=== PATIENT | male | born 1975 | race Two or more races ===

== ENCOUNTER 2017-05-12 20:02 | Inpatient (IN) | payer OTHER ==
[~2017-05-12] VITALS: Ht 177.8 cm; Wt 82.9 kg
[2017-05-12 20:43] LABS: Basophils # (auto) 0.1 uL; Basophils % (auto) 1.1 % (0.0-2.0); Eosinophils # (auto) 0.5 uL; Eosinophils % (auto) 5.9 % (0.0-7.0); Hematocrit 45.4 % (41.0-53.0); Hemoglobin 15.5 g/dL (13.5-17.5); Lymphocytes # (auto) 2.7 uL; Lymphocytes % (auto) 34.5 % (10.0-50.0); Mean Corpuscular Hemoglobin 33.9 pg (28.0-32.0); Mean Corpuscular Hgb Conc. 34.1 g/dL (32.0-36.0); Mean Corpuscular Volume 99.4 fL (80.0-100.0); Monocytes # (auto) 0.6 uL; Monocytes % (auto) 7.5 % (0.0-12.0); Nucleated Red Blood Cells % 0.1 %; Platelet Count (auto) 311 10^3/uL (140-450); Red Blood Cells 4.56 10^6/uL (4.5-5.90); Red Cell Distribution Width 12.2 % (11.8-14.3); White Blood Cell 7.9 10^3/uL (4.4-10.8)
[2017-05-12 21:08] LABS: Albumin 3.7 g/dL (3.4-5.0); BUN/Creatinine Ratio 20.9; Bilirubin, Total 0.3 mg/dL (0.2-1.0); Calcium 8.8 mg/dL (8.5-10.1); Potassium 4.2 mmol/L (3.5-5.1); Total Protein 8.3 g/dL (6.4-8.2)
[2017-05-12 21:25] LABS: Urine Bacteria FEW /hpf (None Seen); Urine Blood 3+ /uL (Negative); Urine Mucus FEW (None Seen); Urine Specific Gravity 1.013 (1.001-1.035); Urine WBC 69 /hpf (0 - 3)
[2017-05-12] MEDS ORDERED: HYDROmorphone HCL 2 MG/ML VL IV ONE (22:15)
[2017-05-12] MEDS ORDERED: ONDANSETRON HCL 4 MG/2 ML VIAL IV ONE (22:15)
[2017-05-13] MEDS ORDERED: HYDROmorphone HCL 2 MG/ML VL IV ONE (02:15)
[2017-05-13] MEDS ORDERED: ONDANSETRON HCL 4 MG/2 ML VIAL IV ONE (02:15)
[2017-05-13] MEDS ORDERED: cefTRIAXone 1GM/50ML D5W 50 ML IV ONE ×2 (02:15→13:30)
[2017-05-13] MEDS ORDERED: SODIUM CHLORIDE 0.9% 500 ML IV ONE (02:45)
[2017-05-13] MEDS ORDERED: TEMAZEPAM 15 MG CAP PO PRN (02:45)
[2017-05-13] MEDS ORDERED: ACETAMINOPHEN 325 MG TAB PO PRN (02:45)
[2017-05-13] MEDS ORDERED: ONDANSETRON HCL 4 MG/2 ML VIAL IV PRN (02:45)
[2017-05-13] MEDS ORDERED: HYDROcodone-ACET 5/325MG TAB PO PRN (02:45)
[2017-05-13] MEDS ORDERED: MORPHINE SULFATE 10 MG/ML INJ 1ML SDV IV PRN (03:00)
[2017-05-13] MEDS: SODIUM CHLORIDE 0.9% 1,000 ML IV SCH ×3 (04:18→18:00)
[2017-05-13] MEDS ORDERED: cloNIDine HCL 0.1 MG TAB PO ONE (08:15)
[2017-05-13 09:30] VITALS: BP 132/88
[2017-05-13 09:39] VITALS: BP 132/88
[2017-05-13] MEDS: FAMOTIDINE 20 MG TAB PO SCH ×2 (09:50→22:25)
[2017-05-13 12:19] LABS: INR 0.98 (0.9-1.15); Prothrombin Time 10.7 sec (9.37-12.3)
[2017-05-13 12:35] VITALS: BP 124/80
[2017-05-13] MEDS: MORPHINE SULFATE 10 MG/ML INJ 1ML SDV IV PRN ×3 (13:55→22:26)
[2017-05-13 16:19] VITALS: BP 110/72
[2017-05-13 22:00] VITALS: BP 120/70
[2017-05-13] MEDS ORDERED: cefTRIAXone 1GM/50ML D5W 50 ML IV SCH (22:00)
[2017-05-14] MEDS: MORPHINE SULFATE 10 MG/ML INJ 1ML SDV IV PRN ×5 (02:27→20:05)
[2017-05-14 06:00] VITALS: BP 126/89
[2017-05-14] MEDS ORDERED: FUROSEMIDE 40 MG/4 ML VIAL ONE (08:21)
[2017-05-14] MEDS: cefTRIAXone 1GM/50ML D5W 50 ML IV SCH (09:00)
[2017-05-14] MEDS: FAMOTIDINE 20 MG TAB PO SCH ×2 (09:03→21:25)
[2017-05-14 12:02] VITALS: BP 142/89
[2017-05-14] MEDS ORDERED: PROPOFOL 10 MG/ML 20 ML IV ONE (14:12)
[2017-05-14] MEDS ORDERED: fentaNYL CITRATE 100 MCG/2 ML VL ONE (14:12)
[2017-05-14] MEDS ORDERED: MIDAZOLAM HCL 1MG/1ML-2 ML VIAL ONE (14:12)
[2017-05-14] MEDS ORDERED: hydrALAZINE HCL 20 MG/ML VL IV PRN (15:00)
[2017-05-14] MEDS ORDERED: ONDANSETRON HCL 4 MG/2 ML VIAL IV ONE (15:00)
[2017-05-14] MEDS ORDERED: ePHEDrine SULFATE 50 MG/ML AMP IV PRN (15:00)
[2017-05-14] MEDS ORDERED: fentaNYL CITRATE 100 MCG/2 ML VL IV ONE (15:00)
[2017-05-14] MEDS: SODIUM CHLORIDE 0.9% 1,000 ML IV SCH (15:50)
[2017-05-14 16:07] LABS: Eosinophils # (auto) 0.5 uL; Monocytes % (auto) 5.4 % (0.0-12.0)
[2017-05-14 16:08] LABS: Basophils # (auto) 0 uL; Basophils % (auto) 0.5 % (0.0-2.0); Eosinophils % (auto) 6.3 % (0.0-7.0); Hematocrit 49.5 % (41.0-53.0); Hemoglobin 16.7 g/dL (13.5-17.5); Lymphocytes # (auto) 1.9 uL; Lymphocytes % (auto) 23.8 % (10.0-50.0); Mean Corpuscular Hemoglobin 33.8 pg (28.0-32.0); Mean Corpuscular Hgb Conc. 33.7 g/dL (32.0-36.0); Mean Corpuscular Volume 100.5 fL (80.0-100.0); Monocytes # (auto) 0.4 uL; Neutrophils # (auto) 5.2 uL; Nucleated Red Blood Cells % 0.1 %; Platelet Count (auto) 296 10^3/uL (140-450); Red Blood Cells 4.92 10^6/uL (4.5-5.90); Red Cell Distribution Width 12.5 % (11.8-14.3); White Blood Cell 8.1 10^3/uL (4.4-10.8)
[2017-05-14 16:33] LABS: Albumin 3.3 g/dL (3.4-5.0); BUN/Creatinine Ratio 17.9; Calcium 8.7 mg/dL (8.5-10.1); Potassium 4.1 mmol/L (3.5-5.1)
[2017-05-14 16:36] LABS: Bilirubin, Total 0.4 mg/dL (0.2-1.0); Total Protein 7.5 g/dL (6.4-8.2)
[2017-05-14 16:44] VITALS: BP 149/109
[2017-05-14 22:17] VITALS: BP 129/73
[2017-05-15] MEDS: MORPHINE SULFATE 10 MG/ML INJ 1ML SDV IV PRN ×5 (00:27→21:52)
[2017-05-15] MEDS: SODIUM CHLORIDE 0.9% 1,000 ML IV SCH ×2 (04:31→17:23)
[2017-05-15 05:27] VITALS: BP 133/73
[2017-05-15 08:00] VITALS: BP 119/83
[2017-05-15] MEDS: cefTRIAXone 1GM/50ML D5W 50 ML IV SCH (08:08)
[2017-05-15] MEDS ORDERED: PROPOFOL 10 MG/ML 20 ML IV ONE ×2 (08:11→10:03)
[2017-05-15] MEDS ORDERED: ONDANSETRON HCL 4 MG/2 ML VIAL ONE (08:11)
[2017-05-15] MEDS ORDERED: MIDAZOLAM HCL 1MG/1ML-2 ML VIAL ONE (08:11)
[2017-05-15] MEDS ORDERED: SODIUM CHLORIDE LOCK 10 ML ONE (08:11)
[2017-05-15] MEDS ORDERED: fentaNYL CITRATE 100 MCG/2 ML VL ONE (08:11)
[2017-05-15 08:51] VITALS: BP 119/83
[2017-05-15] MEDS: FAMOTIDINE 20 MG TAB PO SCH ×2 (10:00→21:51)
[2017-05-15] MEDS ORDERED: METOCLOPRAMIDE HCL 5MG/ml INJ 2ml VIAL IV ONE (10:45)
[2017-05-15] MEDS ORDERED: HYDROmorphone HCL 2 MG/ML VL IV PRN (10:45)
[2017-05-15] MEDS ORDERED: cefTRIAXone SOD 1,000 MG VL IV ONE (12:15)
[2017-05-15 13:47] VITALS: BP 144/88
[2017-05-15 16:57] VITALS: BP 128/95
[2017-05-15 22:04] VITALS: BP 135/81
[2017-05-16] MEDS: MORPHINE SULFATE 10 MG/ML INJ 1ML SDV IV PRN ×3 (01:53→11:08)
[2017-05-16 04:52] VITALS: BP 132/88
[2017-05-16] MEDS: SODIUM CHLORIDE 0.9% 1,000 ML IV SCH ×2 (06:04→17:23)
[2017-05-16 09:00] VITALS: BP 135/69
[2017-05-16] MEDS: cefTRIAXone 1GM/50ML D5W 50 ML IV SCH (09:19)
[2017-05-16] MEDS: FAMOTIDINE 20 MG TAB PO SCH ×2 (09:19→20:31)
[2017-05-16 13:00] VITALS: BP 134/71
[2017-05-16] MEDS: HYDROcodone-ACET 10/325MG TAB PO PRN ×2 (15:45→20:32)
[2017-05-16 16:57] VITALS: BP 141/82
[2017-05-16 22:00] VITALS: BP 141/89
[2017-05-17] MEDS: SODIUM CHLORIDE 0.9% 1,000 ML IV SCH ×2 (03:56→17:31)
[2017-05-17 05:00] VITALS: BP 138/87
[2017-05-17 08:00] VITALS: BP 144/81
[2017-05-17] MEDS: HYDROcodone-ACET 10/325MG TAB PO PRN ×3 (08:33→20:46)
[2017-05-17] MEDS: cefTRIAXone 1GM/50ML D5W 50 ML IV SCH (08:33)
[2017-05-17 09:00] VITALS: BP 144/81
[2017-05-17] MEDS: FAMOTIDINE 20 MG TAB PO SCH ×2 (10:10→21:49)
[2017-05-17 13:00] VITALS: BP 126/76
[2017-05-17 15:26] LABS: Urine Bacteria NONE SEEN /hpf (None Seen); Urine Blood 1+ /uL (Negative); Urine Specific Gravity 1.008 (1.001-1.035); Urine WBC 3 /hpf (0 - 3)
[2017-05-17 16:58] VITALS: BP 129/70
[2017-05-17 21:59] VITALS: BP 133/79
[2017-05-18 04:48] VITALS: BP 142/83
[2017-05-18] MEDS: HYDROcodone-ACET 10/325MG TAB PO PRN ×2 (05:36→09:38)
[2017-05-18] MEDS: SODIUM CHLORIDE 0.9% 1,000 ML IV SCH (07:18)
[2017-05-18 08:00] VITALS: BP_SYST 126; BP_SYST 148; BP_DIAS 76; BP_DIAS 90
[2017-05-18] MEDS: cefTRIAXone 1GM/50ML D5W 50 ML IV SCH (08:37)
[2017-05-18 09:00] VITALS: BP 148/90
[2017-05-18 09:07] VITALS: BP 148/90
[2017-05-18 09:28] VITALS: BP 148/90
[2017-05-18] MEDS: FAMOTIDINE 20 MG TAB PO SCH (09:38)
[2017-05-18 13:00] VITALS: BP 142/81
== END 2017-05-18 15:14 | DRG 690 ==
LOC: ER 20:12 → OVERFLOW 20:13 → EEVIPCON 20:13 → OVERFLOW 05-13 08:34 → WEST WING 05-13 08:45
PROVIDERS: ADMIT Nurse Practitioner; ATTEND Internal Medicine
PROC: 0TJB8ZZ Inspection of Bladder, Via Natural or Artificial Opening Endoscopic (ICD-10-PCS; principal; 2017-05-14 14:14)
PROC: 0T778DZ Dilation of Left Ureter with Intraluminal Device, Via Natural or Artificial Opening Endoscopic (ICD-10-PCS; 2017-05-15)
PROC: 0TF78ZZ Fragmentation in Left Ureter, Via Natural or Artificial Opening Endoscopic (ICD-10-PCS; 2017-05-15)
PROC: BT1F1ZZ Fluoroscopy of Left Kidney, Ureter and Bladder using Low Osmolar Contrast (ICD-10-PCS; 2017-05-15)
PROC: 0TP98DZ Removal of Intraluminal Device from Ureter, Via Natural or Artificial Opening Endoscopic (ICD-10-PCS; 2017-05-15 09:25)
DX: N13.6 Pyonephrosis (principal); F17.210 Nicotine dependence, cigarettes, uncomplicated; G47.00 Insomnia, unspecified; N18.9 Chronic kidney disease, unspecified; N26.1 Atrophy of kidney (terminal); Z96.0 Presence of urogenital implants; Z88.8 Allergy status to other drugs, medicaments and biological substances; Z90.89 Acquired absence of other organs
CPT/HCPCS: 36415; 74000; 74176; 76000; 78707; 80053; 81001; 85025; 85610; 85730; 87081; 87086; 96365; 96366; 96375; 96376; G0378; J0696; J2250; J2405; J2704

== ENCOUNTER 2017-06-11 23:01 | Emergency (ER) | payer OTHER ==
[~2017-06-11] VITALS: Ht 177.8 cm; Wt 81.6 kg
[2017-06-12 00:08] LABS: Basophils # (auto) 0.1 uL; Eosinophils # (auto) 0.4 uL; Eosinophils % (auto) 4.3 % (0.0-7.0); Hematocrit 49.1 % (41.0-53.0); Hemoglobin 16.6 g/dL (13.5-17.5); Lymphocytes # (auto) 2.3 uL; Mean Corpuscular Hemoglobin 33.4 pg (28.0-32.0); Mean Corpuscular Hgb Conc. 33.8 g/dL (32.0-36.0); Mean Corpuscular Volume 98.9 fL (80.0-100.0); Mean Platelet Volume 7.7 fL (6.9-10.8); Monocytes # (auto) 0.5 uL; Monocytes % (auto) 5.6 % (0.0-12.0); Neutrophils # (auto) 5.5 uL; Neutrophils % (auto) 63.1 % (37.0-80.0); Nucleated Red Blood Cells % 0.1 %; Platelet Count (auto) 303 10^3/uL (140-450); Red Cell Distribution Width 12.6 % (11.8-14.3); White Blood Cell 8.7 10^3/uL (4.4-10.8)
[2017-06-12 00:15] LABS: Albumin 3.8 g/dL (3.4-5.0); BUN/Creatinine Ratio 26.1; Calcium 9.5 mg/dL (8.5-10.1)
[2017-06-12 00:18] LABS: Bilirubin, Total 0.5 mg/dL (0.2-1.0); Total Protein 8.6 g/dL (6.4-8.2)
[2017-06-12 01:40] LABS: Urine Bilirubin Negative (Negative); Urine Blood 3+ /uL (Negative); Urine Ca Oxalate Crystal MOD (None Seen); Urine Color Yellow (Yellow); Urine Glucose Normal (Normal); Urine Ketone Negative (Negative); Urine Mucus FEW (None Seen); Urine Nitrite Negative (Negative); Urine RBC 86 /hpf (0 - 3); Urine Squamous Epithelial Cell FEW /hpf (<5); Urine Urobilinogen Normal (Negative); Urine pH 6.5 (5.0-8.0)
[2017-06-12] MEDS ORDERED: IBUPROFEN 400 MG TAB PO ONE (02:45)
[2017-06-12] MEDS ORDERED: SODIUM CHLORIDE 0.9% 2,000 ML IV ONE (02:45)
[2017-06-12] MEDS ORDERED: CEFTRIAXONE SODIUM 2 GM in D5W 5% 50 ML IV ONE (02:45)
[2017-06-12] MEDS ORDERED: NALBUPHINE HCL 10 MG/1ml INJECTION IV ONE (02:45)
[2017-06-12] MEDS ORDERED: cefTRIAXone SOD 1,000 MG VL ONE (02:52)
[2017-06-12 04:32] VITALS: BP 136/88
== END 2017-06-12 04:36 ==
LOC: ER 23:08
DX: N20.0 Calculus of kidney (principal); N39.0 Urinary tract infection, site not specified
CPT/HCPCS: 36415; 74176; 80053; 81001; 85025; 87086; 96365; 96375; 99285; J0696; J2300; J7060